=== PATIENT | female | born 1990 | race American Indian/Alaskan Native ===

== ENCOUNTER 2017-03-06 12:32 | Emergency (ER) | payer MEDICAID, OTHER ==
[2017-03-06 12:52] VITALS: BP 137/80
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
== END 2017-03-06 17:14 | disposition home or self-care (01) ==
LOC: ED 12:32
DX: M54.5 Low back pain (principal); M79.1 Myalgia; Z88.0 Allergy status to penicillin; V49.40XA Driver injured in collision with unspecified motor vehicles in traffic accident, initial encounter; Y93.9 Activity, unspecified; Y99.9 Unspecified external cause status; Y92.410 Unspecified street and highway as the place of occurrence of the external cause
CPT/HCPCS: 72072; 72100; 99283